=== PATIENT | female | born 1985 | race Caucasian/White ===

== ENCOUNTER 2016-06-17 10:17 | Emergency (ER) | payer SELFPAY ==
--- NOTE | ~2016-06-17 | ER ---
PATIENT'S NAME: [facility]A [facility] AGE: 30 Y [address] ROOM: [place] [address] LOCATION: [facility] ADMIT DATE: 06/17/2016 ER/Outpatient Report DISCHARGE DATE: 06/17/2016 FAMILY PHYSICIAN: Dolly Roche MD ATTENDING PHYSICIAN: Dru Bang CHIEF COMPLAINT: Nausea, concern for . HISTORY OF PRESENT ILLNESS: The patient states that for the last several days she has been having some nausea throughout the day, it is more prominent in the morning. She has also been very fatigued, which she has had with prior pregnancies. Two home tests have been positive and negative. She states she could not afford any further test. She also needs further documentation to ensure that things are covered from her insurance evaluation. She notes that her last period was sometime in March, which is very unusual for her. She had not been otherwise concern. She does note that she has not felt quite right for the last 2 weeks or so. PAST MEDICAL HISTORY: Documented on the record and reviewed by me. SOCIAL HISTORY: Documented on the record and reviewed by me. MEDICATIONS: Documented on the record and reviewed by me. ALLERGIES: DOCUMENTED ON THE RECORD AND REVIEWED BY ME. REVIEW OF SYSTEMS: All systems reviewed and negative except as noted in the HPI. PHYSICAL EXAMINATION: VITAL SIGNS: Blood pressure is 141/72, pulse 100, respiratory rate 16, temperature 97.3, and SpO2 is 96% on room air. GENERAL: Age-appropriate female, in no obvious pain or distress. Resting comfortably on the exam table. NEUROLOGIC: Awake and alert. GCS 15. No focal deficits or asymmetry. HEENT: Normocephalic and atraumatic. Eyes are PERRL. Oropharynx is clear. NECK: Supple. Trachea is midline. CHEST: Heart regular rate and rhythm with borderline tachycardia. No murmurs. Lungs are clear to auscultation bilaterally with no rhonchi, PATIENT'S NAME: [facility]A [facility] AGE: 30 Y [address] ROOM: [place] [address] LOCATION: [facility] ADMIT DATE: 06/17/2016 ER/Outpatient Report DISCHARGE DATE: 06/17/2016 FAMILY PHYSICIAN: Dolly Roche MD ATTENDING PHYSICIAN: Dru Bang wheezes, or rales. ABDOMEN: Soft, nontender, and nondistended. No rebound, guarding, masses, or suprapubic tenderness. BACK: Nontender to palpation throughout. No CVA tenderness. EXTREMITIES: Warm and well perfused. SKIN: Warm, dry, and intact. LABORATORY DATA AND X-RAYS: No imaging was obtained formally. Bedside ultrasound reveals what appears to be single intrauterine with active motion and difficulty identifying exact heart rate. WBC 7.4, hemoglobin 13.0, and platelets 189. Beta HCG 51,695. Urinalysis likely contaminated, not consistent with infection, but with 1000 glucose. Other labs, hemoglobin A1c is 6.8 with a median glucose of 148. The remainder of her lab work was grossly normal. IMPRESSION: 1. . 2. Borderline diabetes. 3. Nausea. EMERGENCY DEPARTMENT COURSE: The patient was evaluated. Given Zofran for nausea. Labs consistent with of at least 9 weeks. Transabdominal ultrasound reveals intrauterine , but heart rate was beyond the resolving capabilities of the machine. The fetus did appear to have good motion, however. This was not a formal ultrasound and this was done at bedside in the emergency department. The patient's presentation is not consistent with molar at this time. I do not think that she has an ectopic and she has not had any abdominal pain. I was concerned that she may have diabetes and she is borderline with a hemoglobin A1c of 6.8. I have recommended she follow up this week with an obstetric provider for formal evaluation and ultrasound. All questions were answered. The patient was discharged in stable condition with Zofran. MD YUDI SALDANA/angelina /[id number] d: 06/17/[id number] t: 06/18/16 0642, OUTPATIENT REPORT
[2016-06-17 10:58] LABS: BILIRUBIN URINE NEGATIVE (NEGATIVE); BLOOD URINE NEGATIVE /UL (NEGATIVE); COLOR URINE YELLOW (YELLOW); GLUCOSE URINE 1000 mg/dL (NEGATIVE); KETONE URINE NEGATIVE (NEGATIVE); LEUKOCYTES URINE 100 /UL (NEGATIVE); NITRITE URINE NEGATIVE (NEGATIVE); PROTEIN URINE 15 mg/dL (NEGATIVE); SPEC GRAVITY URINE 1.025 (1.003-1.035); TURBIDITY URINE 1+ (CLEAR); UROBILINOGEN URINE 1 mg/dL (NORMAL)
[2016-06-17 11:05] LABS: RBC URINE NEGATIVE #/HPF (NEGATIVE)
[2016-06-17 11:06] LABS: BACTERIA URINE MANY (NEGATIVE)
[2016-06-17 11:44] LABS: BASOPHIL % 0.3 %; EOSINOPHIL # 0.1 K/uL (0.0-0.5); EOSINOPHIL % 0.8 %; HEMATOCRIT 39.1 % (33.0-46.0); IMMATURE GRANULOCYTE % 0.1 %; LYMPHOCYTE # 1.4 K/uL (0.8-4.0); LYMPHOCYTE % 19.4 %; MCH 29.4 pg (27.0-34.0); MCHC 33.2 gm/dL (32.0-36.5); MCV 88.5 fl (83.0-98.0); MONOCYTE # 0.6 K/uL (0.0-1.0); MONOCYTE % 8.5 %; MPV 11.2 fl (9.4-12.4); NEUTROPHIL # (ANC) 5.2 K/uL (1.8-7.8); NEUTROPHIL % 70.9 %; NRBC % 0 /100WBC (0-0.00); PLATELET COUNT 189 K/uL (150-450); RBC 4.42 M/uL (3.50-5.00); RDW-CV 14.1 % (11.9-14.6); WBC 7.4 K/uL (4.0-11.0)
[2016-06-17 11:56] LABS: ALK PHOS 65 IU/L (33-138); ALT 18 IU/L (12-78); ANION GAP 11.8 (10.0-19.0); AST 12 IU/L (10-40); BLOOD UREA NITROGEN 9 mg/dL (6-24); CALCIUM 8.7 mg/dL (8.5-10.5); CHLORIDE 103 mMol/L (96-110); CO2 29 mMol/L (22-32); CREATININE 0.6 mg/dL (0.5-1.1); ESTIMATED GFR (MDRD EQUATION) > 60; POTASSIUM 3.8 mMol/L (3.7-5.1); SODIUM 140 mMol/L (135-145); TOTAL BILIRUBIN 0.3 mg/dL (0.0-1.5)
== END 2016-06-17 12:08 | disposition disaster alternative care site (69) ==
LOC: GMED 10:17
PROVIDERS: Emergency Medicine
DX: O99.89 Other specified diseases and conditions complicating pregnancy, childbirth and the puerperium (principal); R11.0 Nausea; R73.03 Prediabetes